=== PATIENT | male | born 1970 | race Hispanic/Latino ===

== ENCOUNTER 2018-08-12 10:57 | Emergency (ER) | payer OTHER, BC ==
[2018-08-12] MEDS ORDERED: TETANUS & DIPHTHERIA TOX,ADULT 0.5 ML VIAL ONE (11:19)
[2018-08-12] MEDS ORDERED: FENTANYL CITR 100 MCG/2 ML ONE ×3 (11:19→13:51)
[2018-08-12] MEDS ORDERED: NA CHLORIDE 0.9% 1,000 ML ONE (11:19)
[2018-08-12 11:29] LABS: Absolute Lymphocytes (CBC) 2.3 K/uL (0.7-4.9); Absolute Monocytes 0.4 K/uL (0.1-1.3); Absolute Neutrophil 4.8 K/uL (1.8-8.0); Basophils % 0.7 % (0-1.3); Eosinophils % 2.6 % (0-4.4); Hematocrit 43.8 % (39.6-49.0); Lymphocytes % 29.8 % (15.3-44.8); MPV 8.2 fL (7.6-11.3); Monocytes % 5.2 % (3.3-12.3); RBC Red Blood Cell Count 4.95 M/uL (4.33-5.43)
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
[2018-08-12 12:19] LABS: BUN Blood Urea Nitrogen 18 mg/dL (7-18); Bicarbonate 25 mmol/L (21-32); Glucose Level 155 mg/dL (74-106); Potassium 3.7 mmol/L (3.5-5.1); Sodium Level 139 mmol/L (136-145)
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
--- NOTE | 2018-08-12 12:39 | EDPHYS ---
Physician Documentation [facility] Name: Khari Sarmiento Age: 48 yrs Sex: Male : 1970 Arrival Date: 08/12/2018 Time: 10:59 Bed 14 Private MD: ED Physician Eliot Ha HPI: 08/12 11:26 This 48 yrs old Male presents to ER via EMS with complaints of fall from tree, snw right ankle pain. 11:26 The patient presents with decreased range of motion, an injury, pain, swelling, snw tenderness. The complaints affect the right ankle. Onset: The symptoms/episode began/occurred suddenly, just prior to arrival. Context: The problem was sustained outdoors, resulted from the patient falling, from ladder - 6 ft, tumbled down rungs of ladder, abrasions from tree limb, The mechanism of injury involved axial compression of the affected ankle. The patient is unable to bear weight. The patient is not able to ambulate. Associated signs and symptoms: The patient has no apparent associated signs or symptoms. Severity of symptoms: At their worst the symptoms were moderate, severe. The patient has not experienced similar symptoms in the past. It is unknown whether or not the patient has recently seen a physician. Historical: - Allergies: 10:55 No Known Allergies; rb1 - Home Meds: 10:55 None [Active]; rb1 - PMHx: 10:55 None; rb1 - Immunization history:: Last tetanus immunization: unknown. - Social history:: Smoking status: Patient/guardian denies using tobacco. - Ebola Screening: : Patient negative for fever greater than or equal to 101.5 degrees Fahrenheit, and additional compatible Ebola Virus Disease symptoms. ROS: 11:25 Constitutional: Negative for fever, chills, and weight loss, Eyes: Negative for injury, snw pain, redness, and discharge, ENT: Negative for injury, pain, and discharge, Neck: Negative for injury, pain, and swelling, Respiratory: Negative for shortness of breath, cough, wheezing, and pleuritic chest pain, Abdomen/GI: Negative for abdominal pain, nausea, vomiting, diarrhea, and constipation, Back: Negative for injury and pain, : Negative for injury, bleeding, discharge, and swelling, Skin: Negative for injury, rash, and discoloration, Neuro: Negative for headache, weakness, numbness, tingling, and seizure. 11:25 Cardiovascular: Positive for chest pain, with movement, of the anterior aspect of right upper chest and right breast. 11:25 MS/extremity: Positive for injury or acute deformity, decreased range of motion, pain, of the right ankle. Exam: 11:09 Eyes: Pupils equal round and reactive to light, extra-ocular motions intact. Lids and snw lashes normal. Conjunctiva and sclera are non-icteric and not injected. Cornea within normal limits. Periorbital areas with no swelling, redness, or edema. ENT: Nares patent. No nasal discharge, no septal abnormalities noted. Tympanic membranes are normal and external auditory canals are clear. Oropharynx with no redness, swelling, or masses, exudates, or evidence of obstruction, uvula midline. Mucous membranes moist. Neck: Trachea midline, no thyromegaly or masses palpated, and no cervical lymphadenopathy. Supple, full range of motion without nuchal rigidity, or vertebral point tenderness. No Meningismus. 11:09 Cardiovascular: Regular rate and rhythm with a normal S1 and S2. No gallops, murmurs, or rubs. Normal PMI, no JVD. No pulse deficits. Respiratory: Lungs have equal breath sounds bilaterally, clear to auscultation and percussion. No rales, rhonchi or wheezes noted. No increased work of breathing, no retractions or nasal flaring. Abdomen/GI: Soft, non-tender, with normal bowel sounds. No distension or tympany. No guarding or rebound. No evidence of tenderness throughout. Back: No spinal tenderness. No costovertebral tenderness. Full range of motion. Skin: Warm, dry with normal turgor. Normal color with no rashes, no lesions, and no evidence of cellulitis. MS/ Extremity: Pulses equal, no cyanosis. Neurovascular intact. left ankle with + deformity, ecchymosis at medial malleolus, sensation and pulses present Neuro: Awake and alert, GCS 15, oriented to person, place, time, and situation. Cranial nerves II-XII grossly intact. Motor strength 5/5 in all extremities. Sensory grossly intact. Cerebellar exam normal. Normal gait. 11:09 Constitutional: The patient appears alert, awake, in obvious pain, restless, uncomfortable. 11:09 Head/face: Noted is contusion, that is superficial, of the left side of the nose. 11:09 Chest/axilla: Inspection: abrasion, that is moderate, of the anterior aspect of right upper chest and right breast rash. 12:33 ECG was reviewed by the Attending Physician. snw Vital Signs: 10:55 BP 140 / 93; Pulse 84; Resp 23; Temp 97.8(O); Pulse Ox 100% on R/A; Weight 92.99 kg rb1 (R); Height 5 ft. 5 in. (165.10 cm) (R); Pain 10/10; 11:33 rb1 12:12 BP 148 / 76; Pulse 86; Resp 22; Pulse Ox 100% on R/A; Pain 10/10; rb1 13:12 BP 146 / 85; Pulse 76; Resp 20; Pulse Ox 99% on R/A; Pain 8/10; rb1 10:55 Body Mass Index 34.11 (92.99 kg, 165.10 cm) rb1 11:[address] rb1 [place] Coma Score: 10:55 Eye Response: spontaneous(4). Verbal Response: oriented(5). Motor Response: obeys rb1 commands(6). Total: 15. Trauma Score (Adult): 10:55 Eye Response: spontaneous(1); Verbal Response: oriented(1); Motor Response: obeys rb1 commands(2); Systolic BP: > 89 mm Hg(4); Respiratory Rate: 10 to 29 per min(4); Davi Score: 15; Trauma Score: 12 11:00 Eye Response: spontaneous(1); Verbal Response: oriented(1); Motor Response: obeys rb1 commands(2); Systolic BP: > 89 mm Hg(4); Respiratory Rate: 10 to 29 per min(4); Davi Score: 15; Trauma Score: 12 11:15 Eye Response: spontaneous(1); Verbal Response: oriented(1); Motor Response: obeys rb1 commands(2); Systolic BP: > 89 mm Hg(4); Respiratory Rate: 10 to 29 per min(4); Davi Score: 15; Trauma Score: 12 11:30 Eye Response: spontaneous(1); Verbal Response: oriented(1); Motor Response: obeys rb1 commands(2); Systolic BP: > 89 mm Hg(4); Respiratory Rate: 10 to 29 per min(4); [place] Score: 15; Trauma Score: 12 11:45 Eye Response: spontaneous(1); Verbal Response: oriented(1); Motor Response: obeys rb1 commands(2); Systolic BP: > 89 mm Hg(4); Respiratory Rate: 10 to 29 per min(4); [place] Score: 15; Trauma Score: 12 12:00 Eye Response: spontaneous(1); Verbal Response: oriented(1); Motor Response: obeys rb1 commands(2); Systolic BP: > 89 mm Hg(4); Respiratory Rate: 10 to 29 per min(4); [place] Score: 15; Trauma Score: 12 12:15 Eye Response: spontaneous(1); Verbal Response: oriented(1); Motor Response: obeys rb1 commands(2); Systolic BP: > 89 mm Hg(4); Respiratory Rate: 10 to 29 per min(4); Davi Score: 15; Trauma Score: 12 12:30 Eye Response: spontaneous(1); Verbal Response: oriented(1); Motor Response: obeys rb1 commands(2); Systolic BP: > 89 mm Hg(4); Respiratory Rate: 10 to 29 per min(4); [place] Score: 15; Trauma Score: 12 12:45 Eye Response: spontaneous(1); Verbal Response: oriented(1); Motor Response: obeys rb1 commands(2); Systolic BP: > 89 mm Hg(4); Respiratory Rate: 10 to 29 per min(4); Davi Score: 15; Trauma Score: 12 13:00 Eye Response: spontaneous(1); Verbal Response: oriented(1); Motor Response: obeys rb1 commands(2); Systolic BP: > 89 mm Hg(4); Respiratory Rate: 10 to 29 per min(4); [place] Score: 15; Trauma Score: 12 13:12 Eye Response: spontaneous(1); Verbal Response: oriented(1); Motor Response: obeys rb1 commands(2); Systolic BP: > 89 mm Hg(4); Respiratory Rate: 10 to 29 per min(4); [place] Score: 15; Trauma Score: 12 13:15 Eye Response: spontaneous(1); Verbal Response: oriented(1); Motor Response: obeys rb1 commands(2); Systolic BP: > 89 mm Hg(4); Respiratory Rate: 10 to 29 per min(4); Davi Score: 15; Trauma Score: 12 13:30 Eye Response: spontaneous(1); Verbal Response: oriented(1); Motor Response: obeys rb1 commands(2); Systolic BP: > 89 mm Hg(4); Respiratory Rate: 10 to 29 per min(4); [place] Score: 15; Trauma Score: 12 MDM: 11:09 Patient medically screened. snw 12:10 Data reviewed: vital signs, nurses notes. Data interpreted: Pulse oximetry: on room air snw is 100 %. Interpretation: normal. Counseling: I had a detailed discussion with the patient and/or guardian regarding: the historical points, exam findings, and any diagnostic results supporting the discharge/admit diagnosis, the presence of at least one elevated blood pressure reading (>120/80) during this emergency department visit, lab results, radiology results. Physician consultation: Goran Childers MD was called at 12:11, was contacted at 12:11, regarding consult, after a discussion of the case, a recommendation for transfer for higher level of care is made. 12:38 Physician consultation: Dr. Byrne at [facility] kindly accepts pt in transfer without snw consultation. 08/12 11:02 Order name: Basic Metabolic Panel; Complete Time: 12:19 snw 08/12 11:02 Order name: CBC with Diff; Complete Time: 11:36 snw 08/12 11:02 Order name: CT Traumagram (Head C Spine CAP wo con); Complete Time: 12:05 snw 08/12 11:02 Order name: Creatinine for Radiology; Complete Time: 11:46 snw 08/12 11:02 Order name: Type And Screen; Complete Time: 12:26 snw 08/12 12:45 Order name: ABO/RH no charge; Complete Time: 12:47 EDMS 08/12 11:02 Order name: Tib Fib Right XRAY snw 08/12 11:32 Order name: EKG; Complete Time: 11:32 snw 08/12 11:02 Order name: Labs collected and sent; Complete Time: 11:04 snw 08/12 11:32 Order name: NPO; Complete Time: 11:38 snw 08/12 11:32 Order name: EKG - Nurse/Tech; Complete Time: 12:44 snw 08/12 12:42 Order name: Posterior Leg Splint: well padded in current position; Complete Time: 13:33 snw Administered Medications: 11:10 Drug: fentaNYL (PF) 50 mcg Route: IVP; Site: right antecubital; rb1 11:25 Follow up: Response: No adverse reaction; Pain is decreased; pain 12/15 rb1 11:10 Drug: Tetanus-Diphtheria Toxoid Adult 0.5 ml {Forensic Specialist: [employer]. Exp: rb1 06/21/2020. Lot #: [id number]. } Route: IM; Site: right deltoid; 11:25 Follow up: Response: No adverse reaction rb1 11:10 Drug: NS 0.9% 1000 ml Route: IV; Rate: 1 bolus; Site: right antecubital; rb1 12:22 Follow up: IV Status: Completed infusion rb1 12:15 Drug: fentaNYL (PF) 50 mcg Route: IVP; Site: right antecubital; rb1 12:30 Follow up: Response: No adverse reaction; Pain is decreased rb1 13:29 Drug: Ancef 1 grams Route: IVPB; Site: right antecubital; rb1 13:45 Follow up: Response: No adverse reaction; IV Status: Completed infusion rb1 13:43 Drug: fentaNYL (PF) 50 mcg Route: IVP; Site: right antecubital; hb 13:44 Follow up: Response: Medication administered at discharge. hb Disposition: 08/13 08:18 Co-signature as Attending Physician, Eliot Ha MD I agree with the assessment and jamaal plan of care. Disposition: 08/12/18 12:38 Transfer ordered to [facility]. Diagnosis are Fall on and from ladder, Displaced, comminuted distal tibia fracture. Segmental distal fibula fracture. - Reason for transfer: Higher level of care. - Accepting physician is Dr. Byrne. - Condition is Stable. - Problem is new. - Symptoms are unchanged. Signatures: Dispatcher [employer] Eliot Carl MD MD cha Therrien, Shelly, FNP-C PC SUPPORT SPECIALIST-Gabbyw Joanna Garland, RN RN rb1 Bryanna Wallace RN RN Corrections: (The following items were deleted from the chart) 08/12 13:48 12:38 08/12/2018 12:38 Transfer ordered to [facility]. rb1 Diagnosis is Fall on and from ladder; Displaced, comminuted distal tibia fracture. Segmental distal fibula fracture. Reason for transfer: Higher level of care. Accepting physician is Dr. Byrne. Condition is Stable. Problem is new. Symptoms are unchanged. snw
[2018-08-12] MEDS ORDERED: CEFAZOLIN/SWI 1gm 1 GM/10 ML SYR ONE (13:30)
--- NOTE | 2018-08-12 15:03 | RAD REPORT ---
EXAM DESCRIPTION: RAD - Tib Fib Right - 08/12/2018 12:40 pm CLINICAL HISTORY: SMASH INJURY Fall, ankle pain COMPARISON: No comparisons FINDINGS: Comminuted fracture of the distal tibia and fibula noted with significant soft tissue swel ling evident. Fracture also present involving the proximal fibular head and neck.
--- NOTE | 2018-08-14 11:37 | EKG ---
Test Date: 2018-08-12 Test Time: 12:28:46 Business Continuity Planning Director: FAZAL MEASUREMENT RESULTS: Intervals: Rate: 72 DC: 134 QRSD: 112 QT: 360 QTc: 394 [place]: P: 29 DC: 134 QRS: 90 T: 61 INTERPRETIVE STATEMENTS: Normal sinus rhythm Right bundle branch block Abnormal ECG No previous ECG available for comparison Electronically Signed On 08-13-18 10:52:16 CDT by Julio Patel
== END 2018-08-12 13:48 | disposition short-term general hospital (02) ==
LOC: ER 10:57
DX: S82.301A Unspecified fracture of lower end of right tibia, initial encounter for closed fracture (principal); W11.XXXA Fall on and from ladder, initial encounter; Z23 Encounter for immunization
CPT/HCPCS: 36415; 70450; 71250; 72125; 80048; 85025; 86850; 86900; 86901; 90714; 93005; 96361; 96365; 96375; 99285; J0690; J3010; J7030

== ENCOUNTER 2024-09-17 16:09 | Emergency (ER) | payer OTHER ==
--- OUTSIDE RECORDS SUMMARY | 2024-09-17 16:12 | XMS REPORT | Continuity of Care Document ---
Author Name Unknown Address [address] [place] [address] [facility] Address [address] [place] [address] Care Team Providers Care Remelt Operator Name Role Phone RODRICK DOWNS PA Attending Clinician Sterling Caruso M.D. Attending Clinician JOSÉ MIGUEL Uribe P.A. Attending Clinician MARY Ny M.D. Attending Clinician Shannan quintanilla Problems Condition Name Condition Details Condition Category Status Onset Date Resolution Date Last Treatment Date Treating Clinician Comments Source Closed fracture of right tibial plafond without fibula involvemen t, with routine healing, subsequent encounter Closed fracture of right tibial plafond without fibula involvemen t, with routine healing, subsequent encounter Problem Active [facility] Medications Ordered Medication Name Filled Medication Name Start Date Stop Date Current Medication? Ordering Clinician Indication Dosage Frequency Signature (SIG) Comments Components Source Santyl 250 UNIT/GM External Ointment Santyl 250 UNIT/GM External Ointment 10-22 00:00: 00 Yes RODRICK MARTINEZ QD APPLY TO AFFECTED AREA(S) ONCE DAILY DIRECTED. [facility] Procedures Procedure Date / Time Performed Performing Clinicia n Source [U] XRAY ANKLE MIN 3 VWS RIGHT [id number] 2019-01-18 00:00:00 [facility] [U] XRAY ANKLE MIN 3 VWS RIGHT [id number] 2018-12-06 00:00:00 [facility] [U] XRAY ANKLE MIN 3 VWS RIGHT [id number] 2018-11-15 00:00:00 [facility] [U] XRAY ANKLE MIN 3 VWS RIGHT [id number] 2018-10-16 00:00:00 [facility] [U] XRAY ANKLE MIN 3 VWS RIGHT [id number] 2018-09-14 00:00:00 [facility] [U] XRAY ANKLE MIN 3 VWS RIGHT [id number] 2018-08-30 00:00:00 [facility] [U] XRAY ANKLE MIN 3 VWS RIGHT [id number] 2018-08-24 00:00:00 [facility] Encounters Start Date/Time End Date/Time Encounter Type Admission Type Attending [facility] Facility Care Department Encounter ID Source 2023-01-10 15:20:50 2023-01-10 15:20:50 Outpatient [facility] [id number] Dakota Ledbetter 2022-12-28 15:22:32 2022-12-28 15:22:32 Outpatient [facility] [id number] Dakota Szymanski [place] 2019-01-28 11:00:00 2019-01-28 11:00:00 Appointmen t; RODRICK DOWNS PA HANSEN, DENISE, PA [facility] Orthopedics Trauma [facility] [id number] [facility] 2018-12-17 13:45:00 2018-12-17 13:45:00 Appointmen t; RODRICK DOWNS PA HANSEN, DENISE, PA [facility] Orthopedics Trauma [facility] [id number] [facility] 2018-11-19 12:45:00 2018-11-19 12:45:00 Appointmen t; RODRICK DOWNS PA HANSEN, DENISE, PA [facility] Orthopedics Trauma [facility] [id number] [facility] 2018-10-22 13:15:00 2018-10-22 13:15:00 Appointmen t; RODRICK DOWNS PA HANSEN, DENISE, PA [facility] Orthopedics Trauma [facility] [id number] [facility] 2018-10-08 12:00:00 2018-10-08 12:00:00 Appointmen t; RODRICK DOWNS PA HANSEN, DENISE, PA [facility] [id number] [facility] 2018-09-24 12:00:00 2018-09-24 12:00:00 Appointmen t; RODRICK DOWNS PA HANSEN, DENISE, PA [facility] Orthoped[facility] [id number] [facility] 2018-09-12 08:00:00 2018-09-12 08:00:00 Appointmen t; Sterling Jesus M.D. Achor, Timothy, M.D. [facility] [id number] [facility] 2018-09-12 13:09:00 2018-09-12 05:26:00 [id number] [facility] 2018-09-10 11:00:00 2018-09-10 11:00:00 Appointmen t; RODRICK DOWNS PA HANSEN, DENISE, PA [facility] [id number] [facility] 2018-09-05 12:00:00 2018-09-05 12:00:00 Appointmen t; JOSÉ MIGUEL FONTANA P.A. GONZALES, JOANNAH P.ATruman [facility] Orthoped[facility] [id number] [facility] 2018-08-29 10:45:00 2018-08-29 10:45:00 Appointmen t; JOSÉ MIGUEL FONTANA P.A. GONZALES, JOANNAH P.ATruman [facility] Orthoped[facility] [id number] [facility] 2018-08-22 10:45:00 2018-08-22 10:45:00 Appointmen t; JOSÉ MIGUEL FONTANA P.A. GONZALES, JOANNAH P.A. [facility] [id number] [facility] 2018-08-13 11:00:00 2018-08-13 11:00:00 Appointmen t; MARY REGAN M.D. CHOO, ANDREW, M.D. [facility] [id number] [facility] 2018-08-12 17:12:00 2018-08-12 12:47:00 Inpatient E [facility] [id number] [facility] Results Test Description Test Time Test Comments Results Result Co mments Source VITAMIN D, 25 [id number] 05:53:28* Test Item Value Reference Range Interpretation Comme nts VITAMIN D, 25 OH (test code = 4958) 29 NG/ML SEE BELOW L EFFECTIVE 01/2023, PLEASE NOTE NEW METHODOLOGY IS ELECTROCHEMILUMINESCENCE BINDING ASSAY. NOTE: 25-HYDROXYVITAMIN D ASSAY INCLUDES 25-HYDROXYVITAMIN D2 AND D3. INTERPRETIVE RANGES PEDIATRIC (<17 YEARS) . . . . . . . . . . . NG/ML 20-100ADULT: INSUFFICIENT . . . . . . . . . . . . . . NG/ML <20 SUBOPTIMAL . . . . . . . . . . . . . . . NG/ML 20-29 OPTIMAL . . . . . . . . . . . . . . . . . NG/ML 30-100 THYROID II PROFILE (TU,T4,FTI,TSH)2022-12-29 05:52:53* Test Item Value Reference Range Interpretation Comme nts T-UPTAKE (test code = 2817) 27.2 % 24.3-39.0 THYROX. BIND. CAPAC. (test c ode = 14551) 1.2 0.8-1.3 T4 (THYROXINE) (test code = 2819) 9.5 UG/DL 4.5-10.5 CORRECTED T4 (FTI) (test cod e = 2820) 7.9 UG/DL 4.2-11.6 TSH, THIRD GENERATION (test code = 2821) 2.230 UIU/ML 0.400-4.100 LIPID [id number] 03:38:28* Test Item Value Reference Range Interpretation Comme nts CHOLESTEROL (test code = 2210) 261 MG/DL <200 H TRIGLYCERIDES (test code = 2232) 145 MG/DL <150 HDL CHOLESTEROL (test code = 2220) 72 MG/DL >39 CALC LDL CHOL (test code = 2237) 162 MG/DL <100 H NOTE: CALCULATED LDL IS BASED ON SASCHA-WESLEY METHOD WHICHINCLUDES ADJUSTABLE TRIGLYCERIDE:VLDL CHOLESTEROL RATIO.THIS FACTOR VARIES BY MEASURED TRIGLYCERIDE AND NON-HDLCHOLESTEROL CONCENTRATIONS WITH INCREASED CALCULATED LDL SEENIN HIGHER TRIGLYCERIDE OR LOWER NON-HDL SPECIMENS. FOR MOREINFORMATION, SEE CLIENT ANNOUNCEMENT AT [email or web address] RATIO LDL/HDL (test code = 2238) 2.25 RATIO <3.55 COMPREHENSIVE METABOLIC [id number] 03:38:28* Test Item Value Reference Range Interpretation Comme nts GLUCOSE (test code = 2217) 99 MG/DL 70-99 BUN (test code = 2208) 12 MG/DL 6-20 CREATININE (test code = 2214) 0.72 MG/DL 0.80-1.40 L eGFR (2020 CKD-EPI) (test code = 27849) 109 ML/MIN/1.73 >60 CALC BUN/CREAT (test code = 2235) 17 RATIO 6-28 SODIUM (test code = 2230) 141 MEQ/L 133-146 POTASSIUM (test code = 2227) 4.3 MEQ/L 3.5-5.4 CHLORIDE (test code = 2214) 103 MEQ/L 95-107 CARBON DIOXIDE (test code = 2205) 26 MEQ/L 19-31 CALCIUM (test code = 2208) 10.2 MG/DL 8.5-10.5 PROTEIN, TOTAL (test code = 2228) 7.8 G/DL 6.1-8.3 ALBUMIN (test code = 2200) 4.7 G/DL 3.5-5.2 CALC GLOBULIN (test code = 2239) 3.1 G/DL 1.9-3.7 CALC A/G RATIO (test code = 2233) 1.5 RATIO 1.0-2.6 BILIRUBIN, TOTAL (test code = 2206) 0.4 MG/DL See_Comment [Automated me ssage] The system which generated this result transmitted reference range: <=1.2. The reference range was not used to interpret this result as normal/abnormal. ALKALINE PHOSPHATASE (test code = 2203) 114 U/L 40-121 AST (test code = 2217) 31 U/L 9-50 ALT (test code = 2218) 41 U/L 5-50 HEMOGLOBIN [id number] 03:03:19* Test Item Value Reference Range Interpretation Comme nts HEMOGLOBIN A1c (test code = 26627) 5.5 % 4.2-5.6 CBC W/AUTO DIFF WITH [id number] 02:15:29* Test Item Value Reference Range Interpretation Comme nts WBC (test code = 1001) 6.8 K/UL 3.5-11.0 RBC (test code = 1002) 4.99 M/UL 4.50-6.10 HEMOGLOBIN (test code = 1003) 15.2 G/DL 13.5-17.0 HEMATOCRIT (test code = 1004) 44.6 % 40.0-51.0 MCV (test code = 1005) 89.4 fL 80.0-99.0 MCH (test code = 1006) 30.5 PG 25.0-33.0 MCHC (test code = 1007) 34.1 G/DL 31.0-36.0 RDW (test code = 1038) 13.5 % 11.5-15.0 NEUTROPHILS (test code = 1008) 59.6 % LYMPHOCYTES (test code = 1010) 25.8 % MONOCYTES (test code = 1011) 10.1 % EOSINOPHILS (test code = 1012) 3.4 % BASOPHILS (test code = 1013) 0.7 % IMMATURE GRANULOCYTES (test code = 1036) 0.4 % NUCLEATED RBCS (test code = 1065) 0.0 /100 WBC'S See_Comment [Automated message] The system which generated this result transmitted reference range: 0.0. The reference range was not used to interpret this result as normal/abnormal. PLATELET COUNT (test code = 1015) 307 K/UL 130-400 ABSOLUTE NEUTROPHILS (test code = 1066) 4.07 K/UL 1.50-7.50 ABSOLUTE LYMPHOCYTES (test code = 1067) 1.76 K/UL 1.00-4.00 ABSOLUTE MONOCYTES (test code = 1068) 0.69 K/UL 0.20-1.00 ABSOLUTE EOSINOPHILS (test code = 1040) 0.23 K/UL 0.00-0.50 ABSOLUTE BASOPHILS (test code = 1069) 0.05 K/UL 0.00-0.20 ABS IMMATURE GRANULOCYTES (test code = 1020) 0.03 K/UL 0.00-0.10 ABS NUCLEATED RBCS (test code = 99591) 0.00 K/UL 0.00-0.11 UNLESS OTHER MAHONEY INDICATED, ALL TESTING PERFORMED AT [facility] [address] [place] [address] CLINICAL LAB TECHNOLOGIST: OLLIE BROWN M.D. CLIA NUMBER [id number] [facility] [place]. [id number] [U] XRAY ANKLE MIN 3 VWS RIGHT [id number] 12:51:00Images acquired, not reported on this accession number.[facility][U] XRAY ANKLE MIN 3 VWS RIGHT [id number] 12:41:00Images acquired, not reported on this accession number. [facility][U] XRAY ANKLE MIN 3 VWS RIGHT [id number] 11:46:00Images acquired, not reported on this accession number.[facility][U] XRAY ANKLE MIN 3 VWS RIGHT [id number] 11:50:00Images acquired, not reported on this accession number.[facility][U] XRAY ANKLE MIN 3 VWS RIGHT [id number] 10:06:00Images acquired, not reported on this accession number.[facility][U] XRAY ANKLE MIN 3 VWS RIGHT [id number] 10:22:00Images acquired, not reported on this accession number.[facility]
[2024-09-17] MEDS ORDERED: METHYLPREDNISOLONE 125 MG INJ ONE (16:53)
[2024-09-17] MEDS ORDERED: KETOROLAC 30 MG/ML INJ ONE (16:53)
--- NOTE | 2024-09-17 16:57 | EDPHYS ---
Physician Documentation [facility] Name: Khari Sarmiento Age: 54 yrs Sex: Male : 1970 Arrival Date: 09/17/2024 Time: 16:09 Bed 10 Private MD: ED Physician Rickie Nichols HPI: 09/17 16:49 This 54 yrs old Male presents to ER via Ambulatory with complaints of Back sp3 Pain. 16:49 54-year-old male with no significant past medical history and prior back spasms, back sp3 strains treated with steroids now presents to the ED with recurrent low back pain in the musculature. 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 He has no anterior abdominal pain, numbness or tingling in his legs, history of aortic pathology, trauma, symptoms, GI symptoms, or any other signs or symptoms on ROS at this time.. Historical: - Allergies: 16:28 No Known Allergies; iw - Home Meds: 16:28 None [Active]; iw - PMHx: 16:28 None; iw - PSHx: 16:28 right leg; iw - Immunization history:: Adult Immunizations. - Infectious Disease History:: Denies. - Social history:: Smoking status: . ROS: 16:49 Constitutional: Negative for fever, chills, and weight loss, Eyes: Negative for injury, sp3 pain, redness, and discharge, ENT: Negative for injury, pain, and discharge, Neck: Negative for injury, pain, and swelling, Cardiovascular: Negative for chest pain, palpitations, and edema, Respiratory: Negative for shortness of breath, cough, wheezing, and pleuritic chest pain, Abdomen/GI: Negative for abdominal pain, nausea, vomiting, diarrhea, and constipation, MS/Extremity: Negative for injury and deformity, Skin: Negative for injury, rash, and discoloration, Neuro: Negative for headache, weakness, numbness, tingling, and seizure, Psych: Negative for depression, anxiety, suicide ideation, homicidal ideation, and hallucinations, Allergy/Immunology: Negative for hives, rash, and allergies, Endocrine: Negative for neck swelling, polydipsia, polyuria, polyphagia, and marked weight changes, Hematologic/Lymphatic: Negative for swollen nodes, abnormal bleeding, and unusual bruising, 16:49 All other systems are negative, Exam: 16:50 Constitutional: This is a well developed, well nourished patient who is awake, alert, sp3 and in no acute distress. Head/Face: Normocephalic, atraumatic. Eyes: Pupils equal round and reactive to light, extra-ocular motions intact. Lids and lashes normal. Conjunctiva and sclera are non-icteric and not injected. Cornea within normal limits. Periorbital areas with no swelling, redness, or edema. Neck: Trachea midline, no thyromegaly or masses palpated, and no cervical lymphadenopathy. Supple, full range of motion without nuchal rigidity, or vertebral point tenderness. No Meningismus. Chest/axilla: Normal chest wall appearance and motion. Nontender with no deformity. No lesions are appreciated. Cardiovascular: Regular rate and rhythm with a normal S1 and S2. No gallops, murmurs, or rubs. Normal PMI, no JVD. No pulse deficits. Respiratory: Lungs have equal breath sounds bilaterally, clear to auscultation and percussion. No rales, rhonchi or wheezes noted. No increased work of breathing, no retractions or nasal flaring. Abdomen/GI: Soft, non-tender, with normal bowel sounds. No distension or tympany. No guarding or rebound. No evidence of tenderness throughout. Skin: Warm, dry with normal turgor. Normal color with no rashes, no lesions, and no evidence of cellulitis. Neuro: Awake and alert, GCS 15, oriented to person, place, time, and situation. Cranial nerves II-XII grossly intact. Motor strength 5/5 in all extremities. Sensory grossly intact. Cerebellar exam normal. Normal gait. Psych: Awake, alert, with orientation to person, place and time. Behavior, mood, and affect are within normal limits. 16:50 Back: Pain to the musculature bilateral lower back with no midline tenderness, step-offs or bony abnormality. Neurological exam completely normal., Vital Signs: 16:27 BP 153 / 102; Pulse 72; Resp 16; Temp 98(O); Pulse Ox 96% ; Weight 97.98 kg; Height 5 iw ft. 0 in. ; Pain 8/10; 17:19 BP 136 / 96; Pulse 75; Resp 16; Pulse Ox 96% ; ss 16:27 Body Mass Index 42.19 (97.98 kg, 152.4 cm) iw 16:27 Pain Scale: Adult iw MDM: 16:25 Medical Screening Exam initiated sp3 16:53 Data reviewed: vital signs, nurses notes. ED course: 54-year-old male with history of sp3 lumbar muscle pathology. Clinically I am not highly suspicious of AAA, kidney stone, UTI, GI pathology, or any other critical process. Will treat with ketorolac and Solu-Medrol IM and discharge patient home on Medrol and p.o. NSAID. This regimen has helped him in the past and is what he is requesting. He states he could not get into his PCP and so he presented here. I discussed signs and symptoms of AAA which he acknowledged and states he will return if he has not improved.. Administered Medications: 17:00 Drug: Ketorolac IM 30 mg IM once Route: IM; Site: left gluteus; ss 17:19 Follow up: Response: No adverse reaction; Pain is decreased ss 17:00 Drug: MethylPREDNISolone Sodium Succinate IM 60 mg IM once Route: IM; Site: right ss gluteus; 17:19 Follow up: Response: No adverse reaction ss Disposition Summary: 09/17/24 16:56 Discharge Ordered Notes: Location: Home sp3 Condition: Stable sp3 Diagnosis - Lumbar strain sp3 Followup: sp3 - With: Private Physician - When: Upon discharge from the Emergency Department - Reason: Continuance of care Discharge Instructions: - Discharge Summary Sheet sp3 - Lumbar Strain sp3 Forms: - Work release form ss - Medication Reconciliation Form sp3 - Antibiotic Education sp3 - Prescription Opioid Use sp3 - Patient Portal Instructions sp3 - Leadership Thank You Letter sp3 Prescriptions: - Diclofenac Sodium 75 mg Oral Tablet Sustained Release - take 1 tablet ORAL route 2 times per day; 30 tablet; Refills: 0, Product sp3 Selection Permitted - Medrol (Erlin) 4 mg Oral Tablets, Dose Pack - take 1 tablet ORAL route as directed - follow package instructions; 1 packet; sp3 Refills: 0, Product Selection Permitted Signatures: Scarlet Adler RN RN Theresa Alvarado RN RN ss Rickie Nichols MD MD sp3
--- NOTE | 2024-09-17 16:57 | ER ---
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 Coronavirus screen: Ebola Screen: No symptoms or risks identified at this time. Initial Sepsis Screen: Does the patient meet any 2 criteria? No. Patient's initial sepsis screen is negative. Does the patient have a suspected source of infection? No. Patient's initial sepsis screen is negative. Risk Assessment: Do you want to hurt yourself or someone else? Patient reports no desire to harm self or others. 16:27 Method Of Arrival: Ambulatory iw 16:27 Acuity: INDU 4 iw 16:29 Onset of symptoms was September 16, 2024. iw Historical: - Allergies: 16:28 No Known Allergies; iw - Home Meds: 16:28 None [Active]; iw - PMHx: 16:28 None; iw - PSHx: 16:28 right leg; iw - Immunization history:: Adult Immunizations. - Infectious Disease History:: Denies. - Social history:: Smoking status: . Screenin:38 [facility] ED Fall Risk Assessment (Adult) History of falling in the last 3 months, iw including since admission No falls in past 3 months (0 pts) Confusion or Disorientation No (0 pts) Intoxicated or Sedated No (0 pts) Impaired Gait No (0 pts) Mobility Assist Device Used No (0 pt) Altered Elimination No (0 pt) Score/Fall Risk Level 0 - 2 = Low Risk Oriented to surroundings, Maintained a safe environment. Abuse screen: Denies threats or abuse. Nutritional screening: No deficits noted. Tuberculosis screening: No symptoms or risk factors identified. Assessment: 16:33 General: Appears in no apparent distress. Behavior is calm, cooperative. Pain: iw Complains of pain in lumbar area and sacrum. Neuro: Level of Consciousness is awake, alert, obeys commands, Oriented to person, place, time, situation, Moves all extremities. Cardiovascular: Patient's skin is warm and dry. Respiratory: Respiratory effort is even, unlabored, Respiratory pattern is regular, symmetrical. Derm: Skin is intact, is healthy with good turgor. Musculoskeletal: Range of motion: intact in all extremities. 17:00 Reassessment: No changes from previously documented assessment. Patient and/or family ss updated on plan of care and expected duration. Pain level reassessed. Patient is alert, oriented x 3, equal unlabored respirations, skin warm/dry/pink. 17:19 Reassessment: No changes from previously documented assessment. Patient and/or family ss updated on plan of care and expected duration. Pain level reassessed. Patient is alert, oriented x 3, equal unlabored respirations, skin warm/dry/pink. Vital Signs: 16:27 BP 153 / 102; Pulse 72; Resp 16; Temp 98(O); Pulse Ox 96% ; Weight 97.98 kg; Height 5 iw ft. 0 in. ; Pain 8/10; 17:19 BP 136 / 96; Pulse 75; Resp 16; Pulse Ox 96% ; ss 16:27 Body Mass Index 42.19 (97.98 kg, 152.4 cm) iw 16:27 Pain Scale: Adult iw ED Course: 16:13 Patient arrived in ED. im 16:13 Rickie Nichols MD is Attending Physician. sp3 16:28 Triage completed. iw 16:29 Arm band placed on. iw 16:38 Scarlet Adler, RN is Primary Nurse. iw 16:38 No provider procedures requiring assistance completed. Patient did not have IV access iw during this emergency room visit. 17:20 Patient has correct armband on for positive identification. Provided Education on: take ss all prescribed medications as prescribed. Administered Medications: 17:00 Drug: Ketorolac IM 30 mg IM once Route: IM; Site: left gluteus; ss 17:19 Follow up: Response: No adverse reaction; Pain is decreased ss 17:00 Drug: MethylPREDNISolone Sodium Succinate IM 60 mg IM once Route: IM; Site: right ss gluteus; 17:19 Follow up: Response: No adverse reaction ss Medication: 16:33 VIS not applicable for this client. iw Outcome: 16:56 Discharge ordered by . sp3 17:20 Discharged to home ambulatory, ss 17:20 Condition: stable 17:20 Discharge instructions given to patient, family, Instructed on discharge instructions, follow up and referral plans. medication usage, Demonstrated understanding of instructions, follow-up care, medications, Prescriptions given X 2, 17:21 Patient left the ED. 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 0 iw in.; BMI: 42.1; Pain 12/15, Adult; iw
[2024-09-17 17:49] VITALS: TEMP 98; O2SAT 96
[2024-09-17 17:51] VITALS: BP 136/96
== END 2024-09-17 17:21 | disposition home or self-care (01) ==
LOC: ER 16:09
DX: S39.012A Strain of muscle, fascia and tendon of lower back, initial encounter (principal)
CPT/HCPCS: 96372; 99284; J2919